=== PATIENT | female | born 1965 | race Caucasian/White ===

== ENCOUNTER 2017-02-21 20:06 | Emergency (ER) | payer OTHER ==
[2017-02-21 20:15] VITALS: BP 180/116
--- NOTE | 2017-02-21 20:28 | EDM.PDOC ---
ED HPI GENERAL MEDICAL PROBLEM - General Chief Complaint: Genitourinary Problem Stated Complaint: POSS BLADDER INFECTION Time Seen by Provider: 02/21/17 20:20 Source of Information: Reports: Patient, RN Notes Reviewed - History of Present Illness INITIAL COMMENTS - FREE TEXT/NARRATIVE: 51-year-old female comes in with bladder symptoms. Today she has developed worsening dysuria, urgency and frequency. She did have a UTI about 2 months ago. Her symptoms did resolve after treatment but now they are back. No nausea vomiting fever or chills. No back discomfort at this time. She has been eating and drinking without difficulty. - Related Data Allergies Allergy/AdvReac Type Severity Reaction Status Date / Time No Known Allergies Allergy Verified 02/21/17 20:15 Home Meds: Home Meds Nitrofurantoin Monohyd/M-Cryst [Macrobid 100 mg Capsule] 100 mg PO BID #14 capsule 02/21/17 [Rx] Non-Formulary Medication [NF Drug] 1 tab PO DAILY 02/21/17 [History] Past Medical History Cardiovascular History: Reports: Hypertension Social & Family History - Family History Family Medical History: Noncontributory - Tobacco Use Smoking Status *Q: Current Every Day Smoker Years of Tobacco use: 30 Packs/Tins Daily: 0.5 - Recreational Drug Use Recreational Drug Use: No ED ROS GENERAL - Review of Systems Review Of Systems: See Below Constitutional: Denies: Fever, Chills HEENT: Reports: No Symptoms Respiratory: Denies: Shortness of Breath Cardiovascular: Denies: Chest Pain GI/Abdominal: Denies: Abdominal Pain, Nausea, Vomiting : Reports: Dysuria, Frequency, Urgency Musculoskeletal: Denies: Back Pain Neurological: Reports: No Symptoms ED EXAM, RENAL/ - Physical Exam Exam: See Below General Appearance: Alert, No Apparent Distress Throat/Mouth: Normal Inspection Respiratory/Chest: No Respiratory Distress, Lungs Clear Cardiovascular: Regular Rate, Rhythm GI/Abdominal: Non-Tender Back Exam: No: CVA Tenderness (L), CVA Tenderness (R) Course - Vital Signs Last Recorded V/S: Last Vital Signs Temp 96.9 F 02/21/17 20:12 Pulse 68 02/21/17 20:12 Resp 16 02/21/17 20:12 BP 180/116 H 02/21/17 20:12 Pulse Ox 100 02/21/17 20:12 - Orders/Labs/Meds Labs: Laboratory Tests 02/21/17 Range/Units 20:25 Urine Color Ryan H (Yellow) Urine Appearance Clear (Clear) Urine pH 6.0 (5.0-8.0) Ur Specific [place] 1.010 (1.005-1.030) Urine Protein Negative (Negative) Urine Glucose (UA) Trace H (Negative) Urine Ketones Negative (Negative) Urine Occult Blood 1+ H (Negative) Urine Nitrite Positive H (Negative) Urine Bilirubin Negative (Negative) Urine Urobilinogen 1.0 (0.2-1.0) Ur Leukocyte Esterase 1+ H (Negative) Urine RBC 5-10 H (0-5) /hpf Urine WBC 30-40 H (0-5) /hpf Ur Epithelial Cells Not Reportable Ur Squamous Epith Cells 5-10 H (0-5) /hpf Urine Bacteria Few (FEW) /hpf Urine Mucus Not seen (FEW) /hpf Departure - Departure Time of Disposition: 20:45 Disposition: Home, Self-Care 01 Clinical Impression: UTI (urinary tract infection) Qualifiers: Urinary tract infection type: acute cystitis Hematuria presence: without hematuria Qualified Code(s): N30.00 - Acute cystitis without hematuria - Discharge Information Prescriptions: Nitrofurantoin Monohyd/M-Cryst [Macrobid 100 mg Capsule] 100 mg PO BID #14 capsule Instructions: Urinary Tract Infection, Adult Referrals: Pauline Albarran DO [Primary Care Provider] - Forms: ED Department Discharge Additional Instructions: Drink plenty of water to maintain hydration, Macrobid antibiotic twice daily for one week or until gone, followup clinic if symptoms not resolving as expected or return to ED as needed
== END 2017-02-21 21:05 | disposition home or self-care (01) ==
LOC: JD.ED 20:06
DX: N30.00 Acute cystitis without hematuria (principal); I10 Essential (primary) hypertension; Z79.899 Other long term (current) drug therapy; F17.210 Nicotine dependence, cigarettes, uncomplicated
CPT/HCPCS: 81001; 99283

== ENCOUNTER 2019-03-16 14:38 | Emergency (ER) | payer OTHER ==
[2019-03-16 15:56] VITALS: BP 180/107
[2019-03-16] MEDS ORDERED: diphenhydrAMINE 50 MG/ML SDV IVPUSH ONE (16:17)
[2019-03-16] MEDS ORDERED: Sodium Chloride 0.9% 10 ML Syringe FLUSH PRN (16:17)
[2019-03-16] MEDS ORDERED: methylPREDNISolone Sodium Succinate 125 MG/2 ML SDV IVPUSH ONE (16:18)
[2019-03-16] MEDS ORDERED: Famotidine 20 MG/2 ML SDV IVPUSH ONE (16:18)
--- NOTE | 2019-03-16 16:26 | EDM.PDOC ---
ED HPI GENERAL MEDICAL PROBLEM - General Chief Complaint: Allergic Reaction Stated Complaint: REACTION TO MEDICATION Time Seen by Provider: 03/16/19 16:11 Source of Information: Reports: Patient, RN Notes Reviewed History Limitations: Reports: No Limitations - History of Present Illness INITIAL COMMENTS - FREE TEXT/NARRATIVE: Patient is a 53-year-old female who presents to the ED for evaluation of a possible allergic reaction to medication. The patient notes she was started on losartan hydrochlorothiazide roughly 1 week ago. She has been taking this faithfully as prescribed. She states last night she noticed some itching to her head and face, and this did worsen today with hives on her neck and upper chest. She also noted some swelling to the top left lip. She denies any shortness of breath or airway issues at this time. She denies any food allergies nor does she account for eating any foods out of the normal for her. She further denies any respiratory issues like asthma or COPD. She states that she only takes an antacid currently as she did not take the losartan this morning as this is the only change in her normal routine. 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 Denies: Throat Swelling Respiratory: Denies: Shortness of Breath, Wheezing, Cough Cardiovascular: Denies: Chest Pain Endocrine: Reports: No Symptoms GI/Abdominal: Reports: No Symptoms : Reports: No Symptoms Musculoskeletal: Reports: No Symptoms Skin: Reports: Lesions (hive like areas to neck and upper chest), Urticaria ( generalized to head and neck) Neurological: Reports: No Symptoms Psychiatric: Reports: No Symptoms Hematologic/Lymphatic: Reports: No Symptoms Immunologic: Reports: No Symptoms ED EXAM GENERAL NO PERIP PULSE - Physical Exam Exam: See Below Exam Limited By: No Limitations General Appearance: Alert, WD/WN, No Apparent Distress Eye Exam: Bilateral Eye: EOMI, Normal Inspection, PERRL Ears: Normal External Exam Nose: Normal Inspection Throat/Mouth: Normal Inspection, Normal Lips, Normal Teeth, Normal Gums, Normal Oropharynx, Normal Voice, No Airway Compromise Head: Atraumatic, Normocephalic Neck: Normal Inspection, Supple, Non-Tender, Full Range of Motion Respiratory/Chest: No Respiratory Distress, Lungs Clear, Normal Breath Sounds, No Accessory Muscle Use, Chest Non-Tender Cardiovascular: Normal Peripheral Pulses, Regular Rate, Rhythm, No Murmur GI/Abdominal: Normal Bowel Sounds, Soft, Non-Tender, No Distention, No Mass Extremities: Normal Inspection, Normal Capillary Refill Neurological: Alert, Oriented, Normal Cognition, No Motor/Sensory Deficits Psychiatric: Normal Affect, Normal Mood Skin Exam: Warm, Dry, Intact, Other (Multiple areas of raised plaque-like lesions consistent with hives. These are itchy.) Course - Vital Signs Last Recorded V/S: Last Vital Signs Temp 98.5 F 03/16/19 15:52 Pulse 80 03/16/19 15:52 Resp 18 03/16/19 15:52 BP 180/107 H 03/16/19 15:52 Pulse Ox 100 03/16/19 15:52 - Orders/Labs/Meds Orders: Active Orders 24 hr Category Date Time Status Peripheral IV Care [RC] . DIRECTED Care 03/16/19 16:17 Ordered Sodium Chloride 0.9% [Saline Flush] Med 03/16/19 16:17 Ordered 10 ml FLUSH ASDIRECTED PRN Peripheral IV Insertion Adult [OM.PC] Routine Oth 03/16/19 16:17 Ordered Medication Orders Sodium Chloride (Saline Flush) 10 ml FLUSH ASDIRECTED PRN PRN Reason: Keep Vein Open Last Admin: 03/16/19 16:37 Dose: 10 ml Meds: Medications Generic Name Dose Route Start Last Admin Trade Name Freq PRN Reason Stop Dose Admin Sodium Chloride 10 ml 03/16/19 16:17 03/16/19 16:37 Saline Flush FLUSH 10 ml ASDIRECTED PRN Administration Keep Vein Open Discontinued Medications Generic Name Dose Route Start Last Admin Trade Name Freq PRN Reason Stop Dose Admin Diphenhydramine HCl 50 mg 03/16/19 16:17 03/16/19 16:43 Benadryl IVPUSH 03/16/19 16:18 50 mg ONETIME ONE Administration Famotidine 20 mg 03/16/19 16:18 03/16/19 16:47 Pepcid IVPUSH 03/16/19 16:19 20 mg ONETIME ONE Administration Methylprednisolone Sodium Succinate 125 mg 03/16/19 16:18 03/16/19 16:44 Solu-Medrol IVPUSH 03/16/19 16:19 125 mg ONETIME ONE Administration - Re-Assessments/Exams Free Text/Narrative Re-Assessment/Exam: 03/16/19 16:25 Patient presents to the ED for a possible allergic reaction. Have ordered an IV to be placed, 50 mg IV Benadryl, 125 mg IV Solu-Medrol, and 20mg IV Pepcid for initial management. 03/16/19 17:21 Patient was reassessed at bedside, and states she does feel better, the itchiness in her head has subsided. The swelling in her lip has also decreased by little bit. We'll discharge home with a burst of prednisone. Departure - Departure Time of Disposition: 17:24 Disposition: Home, Self-Care 01 Condition: Fair Clinical Impression: Allergic reaction caused by a drug Qualifiers: Encounter type: initial encounter Qualified Code(s): T78.40XA - Allergy, unspecified, initial encounter - Discharge Information *PRESCRIPTION DRUG MONITORING PROGRAM REVIEWED*: No *COPY OF PRESCRIPTION DRUG MONITORING REPORT IN PATIENT CRISTI: No Instructions: Allergies, Adult, [id number] Referrals: Muriel Gary PA-C [Primary Care Provider] - Forms: ED Department Discharge Additional Instructions: You have been evaluated in the ED today for your allergic drug reaction. Please do not take the losartan any longer. You have been provided with a prescription for prednisone, please take as directed. This was sent to the [facility] pharmacy located near [facility]. You may pick this up tomorrow Sunday morning March 17. You may also take [id number] Zantac for itching if not relieved by the prednisone alone. Recommend that you keep a blood pressure journal and follow up with your primary care provider for further management of your blood pressure medications. Please return to the ED if her symptoms should change or worsen - My Orders Last 24 Hours: My Active Orders 03/16/19 16:17 Peripheral IV Care [RC] . DIRECTED Sodium Chloride 0.9% [Saline Flush] 10 ml FLUSH ASDIRECTED PRN Peripheral IV Insertion Adult [OM.PC] Routine - Assessment/Plan Last 24 Hours: My Active Orders 03/16/19 16:17 Peripheral IV Care [RC] . DIRECTED Sodium Chloride 0.9% [Saline Flush] 10 ml FLUSH ASDIRECTED PRN Peripheral IV Insertion Adult [OM.PC] Routine
== END 2019-03-16 17:57 | disposition home or self-care (01) ==
LOC: JD.ED 14:38
DX: L29.9 Pruritus, unspecified (principal); R22.0 Localized swelling, mass and lump, head; T50.905A Adverse effect of unspecified drugs, medicaments and biological substances, initial encounter; I10 Essential (primary) hypertension; Z87.891 Personal history of nicotine dependence
CPT/HCPCS: 96374; 96375; 99283; J1200; J2930; J3490; 99284

== ENCOUNTER 2020-03-30 15:05 | Emergency (ER) | payer OTHER ==
[2020-03-30 15:21] VITALS: BP 141/63; PULSE 82
[2020-03-30] MEDS ORDERED: Famotidine 20 MG Tab PO ONE (15:38)
[2020-03-30] MEDS ORDERED: diphenhydrAMINE 50 MG Cap PO ONE (15:38)
[2020-03-30] MEDS ORDERED: predniSONE 20 MG Tab PO ONE (15:39)
--- NOTE | 2020-03-30 15:49 | EDM.PDOC ---
ED HPI GENERAL MEDICAL PROBLEM - General Chief Complaint: Allergic Reaction Stated Complaint: ALLERGIC REACTION Time Seen by Provider: 03/30/20 15:32 Source of Information: Reports: Patient History Limitations: Reports: No Limitations - History of Present Illness INITIAL COMMENTS - FREE TEXT/NARRATIVE: Patient is a 54-year-old female who presents to the emergency department with complaints of an allergic reaction. She states that she was at work and that about about 1420, she developed itching throughout her body, hives to her left arm, anxiety, and difficulty taken to deep breath. She denies the feeling of itchiness or swelling in her throat. Ambulance was called and she received an EpiPen which she states very quickly resolve the symptoms. Patient feels that this is a reaction to rifampin. 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 She states she took her dose at about 1220 and then about 2 hours later the symptoms developed. At this time she states the symptoms have resolved. She has no further itching, anxiety, rash, or shortness of breath. - Related Data Allergies Allergy/AdvReac Type Severity Reaction Status Date / Time No Known Allergies Allergy Verified 03/30/20 15:21 Home Meds: Home Meds predniSONE [Prednisone] 20 mg PO BID 4 Days #8 tablet 03/30/20 [Rx] Past Medical History Cardiovascular History: Reports: Hypertension Other Cardiovascular History: has recent stress test-abnormality [employer] History: Reports: Social & Family History - Family History Family Medical History: Noncontributory - Tobacco Use Smoking Status *Q: Former Smoker Used Tobacco, but Quit: Yes Month/Year Tobacco Last Used: 2015 - Caffeine Use Caffeine Use: Reports: Soda - Recreational Drug Use Recreational Drug Use: No ED ROS ALLERGIC REACTION - Review of Systems Review Of Systems: See Below Constitutional: Reports: No Symptoms HEENT: Reports: No Symptoms Respiratory: Reports: Shortness of Breath. Denies: Wheezing, Cough Cardiovascular: Reports: No Symptoms Endocrine: Reports: No Symptoms GI/Abdominal: Reports: No Symptoms : Reports: No Symptoms Musculoskeletal: Reports: No Symptoms Skin: Reports: Pruritis, Rash Neurological: Reports: No Symptoms. Denies: Dizziness Psychiatric: Reports: Anxiety Hematologic/Lymphatic: Reports: No Symptoms Immunologic: Reports: No Symptoms ED EXAM GENERAL NO PERIP PULSE - Physical Exam Exam: See Below Exam Limited By: No Limitations General Appearance: Alert, WD/WN, No Apparent Distress Throat/Mouth: Normal Inspection, Normal Lips, Normal Teeth, Normal Gums, Normal Oropharynx, Normal Voice, No Airway Compromise Respiratory/Chest: No Respiratory Distress, Lungs Clear, Normal Breath Sounds, No Accessory Muscle Use, Chest Non-Tender Cardiovascular: Normal Peripheral Pulses, Regular Rate, Rhythm, No Edema, No Gallop, No JVD, No Murmur, No Rub Neurological: Alert, Oriented, CN II-XII Intact, Normal Cognition, Normal Gait, Normal Reflexes, No Motor/Sensory Deficits Psychiatric: Normal Affect, Normal Mood Skin Exam: Warm, Dry, Intact, Normal Color, No Rash Course - Vital Signs Last Recorded V/S: Last Vital Signs Temp 97.2 F 03/30/20 15:13 Pulse 82 03/30/20 15:13 Resp 18 03/30/20 15:13 BP 141/63 H 03/30/20 15:13 Pulse Ox 99 03/30/20 15:13 - Orders/Labs/Meds Meds: Medications Discontinued Medications Generic Name Dose Route Start Last Admin Trade Name Rosie PRN Reason Stop Dose Admin Diphenhydramine HCl 50 mg 03/30/20 15:38 03/30/20 15:49 Benadryl PO 03/30/20 15:39 50 mg ONETIME ONE Administration Famotidine 20 mg 03/30/20 15:38 03/30/20 15:49 Pepcid PO 03/30/20 15:39 20 mg ONETIME ONE Administration Prednisone 40 mg 03/31/20 15:39 Prednisone PO 03/31/20 15:40 ONETIME ONE Prednisone 40 mg 03/30/20 15:39 03/30/20 15:51 Prednisone PO 03/30/20 15:40 40 mg ONETIME ONE Administration - Re-Assessments/Exams Free Text/Narrative Re-Assessment/Exam: On exam, patient's uvula is per normal. There is no signs of swelling within the oropharynx. Her rash has resolved and she is no longer itchy. Lung sounds are clear with no notable wheezing. We will give her oral Benadryl, Pepcid, and prednisone and plan to watch her for a couple hours in the ER. She is in agreement with this plan. 03/30/20 16:50 Patient continues to feel well. Has had no recurrence of rash, itching, or shortness of breath. We will watch her in the ER for a while longer and then plan to discharge her home with a prescription for prednisone. 03/30/20 17:47 Patient has had no recurrence of symptoms. Uvula and oropharynx are normal. We will discharge her home with a prescription for prednisone and recommend take Pepcid daily for the next 3 days. Also recommend she take another dose of Benadryl at bedtime. Discharge instructions as documented. Departure - Departure Time of Disposition: 17:48 Disposition: Home, Self-Care 01 Condition: Good Clinical Impression: Allergic reaction caused by a drug Qualifiers: Encounter type: initial encounter Qualified Code(s): T78.40XA - Allergy, unspecified, initial encounter - Discharge Information *PRESCRIPTION DRUG MONITORING PROGRAM REVIEWED*: No *COPY OF PRESCRIPTION DRUG MONITORING REPORT IN PATIENT CRISTI: No Prescriptions: predniSONE [Prednisone] 20 mg PO BID 4 Days #8 tablet Instructions: Allergies, Adult, [id number] Referrals: Dave De Los Santos MD [Primary Care Provider] - Forms: ED Department Discharge Additional Instructions: You were seen in the emergency department today after having allergic reaction to what is likely you are rifampin. While in the ER you received a dose of prednisone, Benadryl, and Pepcid. You were watched for 2 hours and your symptoms did not return. A prescription for prednisone has been sent to [facility]. Take this as prescribed. Also recommend that you take an [id number] Pepcid daily, as well as Benadryl as needed. If you should develop worsening symptoms such as hives, or shortness of breath, please return to the emergency department. I would recommend that you contact the Department of Health and discuss today's occurrences and discuss alternative treatments for your latent TB. Sepsis Event Note (ED) - Evaluation Sepsis Screening Result: No Definite Risk - Focused Exam Vital Signs: Vital Signs Temp Pulse Resp BP Pulse Ox 03/30/20 15:13 97.2 F 82 18 141/63 H 99
[2020-03-31] MEDS ORDERED: predniSONE 20 MG Tab PO ONE (15:39)
== END 2020-03-30 18:00 | disposition home or self-care (01) ==
LOC: JD.ED 15:05
DX: L50.0 Allergic urticaria (principal); T50.995A Adverse effect of other drugs, medicaments and biological substances, initial encounter; I10 Essential (primary) hypertension; Z87.891 Personal history of nicotine dependence
CPT/HCPCS: 99283; A9270; J7512

== ENCOUNTER 2025-08-04 07:13 | Emergency (ER) | payer OTHER ==
[2025-08-04 08:21] LABS: BASOPHILS ABSOLUTE AUTO 0.0 K/mm3 (0.0-0.2); BASOPHILS PERCENT AUTO 0.3 % (0.0-1.0); EOSINOPHILS ABSOLUTE AUTO 0.0 K/mm3 (0.0-0.4); EOSINOPHILS PERCENT AUTO 0.3 % (0.0-6.0); IMMATURE GRAN ABSOLUTE AUTO 0.04 K/mm3 (0.00-0.05); IMMATURE GRAN PERCENT AUTO 0.4 % (0.0-0.4); LYMPHOCYTES ABSOLUTE AUTO 1.0 K/mm3 (1.0-4.8); LYMPHOCYTES PERCENT AUTO 10.5 % (24.0-44.0); MEAN PLATELET VOLUME 9.5 fl (9.4-12.3); MONOCYTES ABSOLUTE AUTO 0.4 K/mm3 (0.0-0.8); MONOCYTES PERCENT AUTO 4.5 % (0.0-8.0); NEUTROPHILS ABSOLUTE AUTO 7.8 K/mm3 (1.8-7.7); NEUTROPHILS PERCENT AUTO 84.0 % (41.0-71.0); NRBC ABSOLUTE 0.00 (0.00-0.02); NRBC PERCENT 0.0 % (0.0-0.2); PLATELET COUNT,PLT 242 K/mm3 (150-400); RED BLOOD CELL COUNT 3.87 M/mm3 (4.10-5.30); WHITE BLOOD CELL COUNT,WBC 9.31 K/mm3 (3.9-11.3)
[2025-08-04 08:47] LABS: A/G RATIO 1.0 (1-2); ALANINE AMINOTRANSFERASE,ALT 10.0 U/L (14-59); ASPARTATE AMNIOTRANSFERASE,AST 12.0 U/L (15-37); BILIRUBIN TOTAL 0.5 mg/dL (0.2-1.0); BLOOD UREA NITROGEN,BUN 11.0 mg/dL (7-18); CARBON DIOXIDE,CO2 25.0 mEq/L (21-32); CHLORIDE,CL 106.0 mEq/L (98-107); CREATININE 1.1 mg/dL (0.55-1.02); EST CRCL DRUG DOSING (CG) 42.9 mL/min; ESTIMATED GFR 57.0 mL/min (>60); GLUCOSE RANDOM 117.0 mg/dL (70-99); POTASSIUM,K 3.8 mEq/L (3.5-5.1); PROTEIN TOTAL,TP 7.6 g/dl (6.4-8.2); SODIUM,NA 142.0 mEq/L (136-145); TROPONIN I HIGH SENSITIVITY 6.0 pg/mL (<=51)
[2025-08-04] MEDS ORDERED: Naloxone 0.4 MG/ML SDV IVPUSH PRN (09:16)
[2025-08-04] MEDS: Sodium Chloride 0.9% 10 ML Syringe FLUSH PRN (09:41)
[2025-08-04] MEDS ORDERED: Acetaminophen/oxyCODONE 325-5 MG Tab PO PRN (10:17)
[2025-08-04] MEDS ORDERED: Lactated Ringers 1,000 ML IV SCH (10:30)
[2025-08-04] MEDS: Ketorolac 30 MG/ML SDV IVPUSH SCH (12:23)
[2025-08-04] MEDS: Ketorolac 30 MG/ML SDV ONE (12:29)
[2025-08-04 12:50] VITALS: BP 145/86; PULSE 69
== END 2025-08-04 12:26 ==
LOC: JD.ED 07:13 → UNDOADMIN 10:12 → JD.MS 10:12 → UNDOADMIN 10:16 → JD.ED 12:26
DX: J93.0 Spontaneous tension pneumothorax (principal); I10 Essential (primary) hypertension; Z79.899 Other long term (current) drug therapy; Z88.8 Allergy status to other drugs, medicaments and biological substances
CPT/HCPCS: 32551; 36415; 71045; 80053; 83880; 84484; 85025; 96374; 96375; 99285; J1171; J1885; J2003; J2270; 99291